=== PATIENT | male | born 1985 | race African-American/Black ===

== ENCOUNTER 2018-02-04 10:58 | Emergency (ER) | payer MEDICAID ==
[~2018-02-04] VITALS: Ht 172.7 cm; Wt 97.0 kg
[2018-02-04] MEDS ORDERED: TETRACAINE 0.5% OPHTH DROPS 4ML OP ONE (15:00)
[2018-02-04] MEDS ORDERED: FLUORESCEIN SODIUM 1MG/STRIP OP ONE (15:00)
[2018-02-04 15:10] VITALS: BP 123/82
== END 2018-02-04 15:30 | disposition home or self-care (01) ==
LOC: ER 10:58
DX: H10.023 Other mucopurulent conjunctivitis, bilateral (principal)
CPT/HCPCS: 99283